=== PATIENT | male | born 1965 | race Caucasian/White ===

== ENCOUNTER 2019-02-18 13:26 | Outpatient (CLI) | payer BC ==
--- NOTE | 2019-02-19 11:02 | MRI ---
LEFT SHOULDER MRI WITHOUT IV CONTRAST: HISTORY: Strain of left rotator cuff capsule, pain, injury. FINDINGS: There are complete full-thickness retracted tears of the supraspinatus tendon as well as the anterior portion of the infraspinatus tendon with some extensive delamination. There is severe associated te ndinopathy. Fluid in the subacromial subdeltoid bursa. AC joint arthrosis. Prominent subscapularis tendinopathy with an undersurface delaminating tear with associated disruption of the biceps tendon tabitha complex and subluxation of the biceps tendon from the superior bicipital groove. Abnormal-rin earing glenoid labrum inferiorly and involving the inferior anterior and inferior posterior labrum wi th small paralabral cysts at the anterior inferior labral region. There is some intramuscular contus ion or strain involving the superior aspect of the infraspinatus muscle. There is also some very sub tle fat stranding in the anterior aspect of the deltoid muscle. IMPRESSION: Extensive rotator cuff tears as above with associated tendinopathy and disruption of the biceps tendo n tabitha complex and some associated intramuscular fat stranding. Abnormal-appearing labrum from the inferior anterior labrum through the inferior labrum and to the level of the posterior inferior labr um, evidence for labral tears. POS: [facility]
== END 2019-02-18 13:27 | disposition home or self-care (01) ==
LOC: BICMRI 13:26
PROVIDERS: ATTEND Orthopaedic Surgery
DX: S46.012A Strain of muscle(s) and tendon(s) of the rotator cuff of left shoulder, initial encounter (principal); M75.82 Other shoulder lesions, left shoulder; S43.492A Other sprain of left shoulder joint, initial encounter

== ENCOUNTER 2019-03-21 07:10 | Day surgery (SDC) | payer BC ==
[2019-03-21] MEDS ORDERED: Midazolam HCl 2 mg/2 ml Vial ONE (08:14)
[2019-03-21] MEDS ORDERED: Fentanyl 100 MCG/2 ML VIAL ONE (08:14)
[2019-03-21 09:06] LABS: #Basophils 0.1 thou/uL (0.0-0.2); #Eosinphils 0.1 thou/uL (0.0-0.7); #Lymphocytes 1.9 thou/uL (1.20-3.40); #Monocytes 0.6 thou/uL (0.11-0.59); #Neutrophils 3.6 thou/uL (1.40-6.50); %Basophils 1.8 % (0.0-1.0); %Eosinophils 1.6 % (0.0-10.0); %Lymphocytes 30.9 % (21.0-51.0); %Monocytes 8.7 % (0.0-10.0); %Neutrophils 57.1 % (42.0-75.0); Hemoglobin 15.6 g/dL (14.0-18.0); Mean Corpuscular HGB CONC 34.6 g/dL (32.0-36.0); Mean Corpuscular Hemoglobin 33.8 pg (27.0-31.0); Mean Corpuscular Volume 97.9 fL (78.0-98.0); Mean Platelet Volume 9.2 fL (7.4-10.4); Platelet Count 181 thou/uL (130-400); Red Blood Cell (RBC) Count 4.62 mill/uL (4.70-6.10); White Blood Cell (WBC) Count 6.3 thou/uL (4.8-10.8)
[2019-03-21] MEDS ORDERED: Ondansetron PF 4 MG/2 ML Vial IVP PRN (09:43)
[2019-03-21] MEDS ORDERED: Ketorolac Tromethamine 30 MG/ML VIAL IVP PRN (09:43)
[2019-03-21] MEDS ORDERED: traMADol HCl 50 MG TAB PO PRN ×2 (09:43)
[2019-03-21] MEDS ORDERED: Ropivacaine 0.2% 550 ML 550 ML NERVE BLCK SCH (09:43)
[2019-03-21] MEDS ORDERED: Promethazine HCl 25 MG/ML VIAL IM PRN (09:43)
[2019-03-21] MEDS ORDERED: Zolpidem Tartrate 5 MG TAB PO PRN (09:43)
[2019-03-21] MEDS ORDERED: HYDROcodone/Acetaminophen 10/325 mg Tablet PO PRN ×2 (09:43)
[2019-03-21] MEDS ORDERED: Fentanyl 100 MCG/2 ML VIAL SLOW IVP PRN (09:44)
[2019-03-21] MEDS ORDERED: Acetaminophen 325 MG TAB PO PRN (09:45)
[2019-03-21] MEDS ORDERED: Bupivacaine HCl 0.5%/Epinephrine 1:200,000/PF 30 ml Vial ONE ×2 (10:51→13:41)
[2019-03-21] MEDS ORDERED: Ondansetron PF 4 MG/2 ML Vial ONE (13:41)
[2019-03-21] MEDS ORDERED: Ropivacaine 0.2% HCl/PF (40 MG/20 ML VIAL) ONE (13:41)
[2019-03-21] MEDS ORDERED: ePHEDrine/0.9% NaCl/PF SYRINGE 50 mg/10 ml ONE (13:41)
[2019-03-21] MEDS ORDERED: Dexamethasone 20 MG/5 ML VIAL ONE (13:41)
[2019-03-21] MEDS ORDERED: Lidocaine 1% PF 5 ML VIAL ONE (13:41)
[2019-03-21] MEDS ORDERED: PHENYLEPHRINE-NS 100 MCG/ML 10 ML SYRINGE ONE (13:41)
[2019-03-21] MEDS ORDERED: Rocuronium Bromide 10 MG/ML (10ML VIAL) ONE (13:41)
[2019-03-21] MEDS ORDERED: PROPOFOL 200 MG/20 ML VIAL ONE (13:41)
[2019-03-21] MEDS ORDERED: Glycopyrrolate 0.2 MG/ML 5 ML SYRINGE ONE (13:41)
[2019-03-21] MEDS ORDERED: Ketorolac Tromethamine 30 MG/ML VIAL ONE (13:41)
--- NOTE | 2019-03-22 09:00 | OP ---
DATE OF PROCEDURE: 03/21/2019 PREOPERATIVE DIAGNOSES: 1. Left full-thickness rotator cuff tear. 2. Biceps tendinopathy. POSTOPERATIVE DIAGNOSES: 1. Left full-thickness supraspinatus and infraspinatus tear off the footprint. 2. Biceps irritation. No partial or full-thickness tearing of the biceps. 3. Intact subscapularis. PROCEDURE PERFORMED: Left arthroscopic rotator cuff repair. HUMAN RESOURCE STATISTICIAN: None. ANESTHESIOLOGIST: Zeyad. ANESTHESIA: The patient received a general endotracheal intubation with interscalene block, 20 mL Marcaine subacromial. ESTIMATED BLOOD LOSS: 30 mL TOURNIQUET TIME: None. IMPLANTS: Two 5.5 corkscrews and three 4.75 SwiveLocks. COMPLICATIONS: None. HISTORY OF PRESENT ILLNESS: Mr. Pham is a 53-year-old male, status post injury to his left shoulder, pop has been chronic. The patient had pain with overhead activities. Pain is severe at times. He is unable to lift his arm. I discussed with him the risks and benefits of arthroscopic left rotator cuff repair to include pain, scar, bleeding, infection, damage to vital structures, decreased range of motion and strength, need for further surgery, failure of procedure, continued pain despite surgical intervention, loss of life or limb. The patient understood the risks and benefits and elected to proceed. DESCRIPTION OF PROCEDURE: Time-out was performed designating the patient's left upper extremity as the operative site based on site, consents, and marking. After time-out, the patient's left upper extremity was prepped and draped in sterile fashion. The patient was in beach chair position with all his bony points well padded. We placed a posterior working portal and anterior working portal. I visualized within the joint. The full-thickness tear was noted immediately. The biceps, some fraying of the labrum was irritated from the cuff superiorly, but had no full-thickness tears or any defects to it, it ran to the groove, it looked otherwise good. The subscap was in place. There was no articular humeral glenoid defects; therefore, left the biceps in place. I cleaned up some of the bursa and then moved subacromially and debrided the bursa. I used a mario to bur the bone on the patient's greater tuberosity to help with adherence of the cuff down. I cleaned up the subacromial space, cleaned the entire cuff to ensure that the bursa was off to help with my repair. I then placed one anchor anteriorly right off the articular margin, passed 4 suture limbs through, placed another posteriorly in footprint, passed all 4 limbs, sewed those down, I was happy overall with my cuff's reapproximation. I then used two double rows, two 4.75 SwiveLock to compress it down laterally. Upon completion of this, I had a little dog-ear anteriorly, which I did not like. I used luggage stitches, passing through and looping through to take guidance and stand it down on the footprint with another 4.75 SwiveLock. Upon completion of this, I attempted to take a Suture Lasso to pass to the interval between the infraspinatus and the teres, but the tissue was not that strong. I felt like if I could pass, I may cause further damage. It was only a slit likely similar to where the passage of the scope portal was, therefore, I left it in place. I washed. I closed with 3-0 nylon. The patient was placed in a sling, elbow, wrist and hand motion. Follow up with me in 2 weeks. Job ID: [id number] [facility]
== END 2019-03-21 14:55 | disposition home or self-care (01) ==
LOC: SDC 07:10
PROVIDERS: ATTEND Orthopaedic Surgery
PROC: 0LQ24ZZ Repair Left Shoulder Tendon, Percutaneous Endoscopic Approach (ICD-10-PCS; principal; 2019-03-21)
PROC: 3E0T3BZ Introduction of Anesthetic Agent into Peripheral Nerves and Plexi, Percutaneous Approach (ICD-10-PCS; principal; 2019-03-21)
PROC: 0RNK4ZZ Release Left Shoulder Joint, Percutaneous Endoscopic Approach (ICD-10-PCS; principal; 2019-03-21)
DX: S46.012A Strain of muscle(s) and tendon(s) of the rotator cuff of left shoulder, initial encounter (principal); G89.18 Other acute postprocedural pain; I10 Essential (primary) hypertension; E78.5 Hyperlipidemia, unspecified; F17.290 Nicotine dependence, other tobacco product, uncomplicated; M75.22 Bicipital tendinitis, left shoulder; Z79.82 Long term (current) use of aspirin; Z79.899 Other long term (current) drug therapy; Z88.8 Allergy status to other drugs, medicaments and biological substances; X50.0XXA Overexertion from strenuous movement or load, initial encounter
CPT/HCPCS: 36415; 85025; A4306; C1713; J0670; J0690; J1100; J1885; J2001; J2250; J2405; J2704; J2795; J3010